=== PATIENT | female | born 1950 ===

== ENCOUNTER 2020-07-31 17:07 | Inpatient (IN) | payer SELFPAY ==
[~2020-07-31] VITALS: Ht 152.4 cm; Wt 54.0 kg
--- NOTE | 2020-07-31 17:26 | NUR ---
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
--- NOTE | 2020-07-31 17:42 | NUR ---
Per nephew pt is here for bilateral arm, leg and CP. Mongolian speaking only.
[2020-07-31] MEDS ORDERED: SODIUM CHLORIDE FLUSH 10ML SYR IVF ONE ×2 (18:00→19:00)
[2020-07-31] MEDS ORDERED: ASPIRIN 81 MG TABLET CHEW PO ONE (18:00)
[2020-07-31] MEDS ORDERED: ASPIRIN 81 MG TABLET CHEW ONE (18:08)
--- NOTE | 2020-07-31 18:15 | NUR ---
Provided with ASA. VS updated. Phleb at bedside, Xray complete.
[2020-07-31 18:38] LABS: BASOPHILS % (AUTO) 1 % (0-1); EOSINOPHILS % (AUTO) 1 % (1-7); LYMPHOCYTES % (AUTO) 7 % (22-44); MEAN CORPUSCULAR HEMOGLOBIN 26.1 pg (27.0-34.8); MEAN CORPUSCULAR HGB CONC 32.6 g/dL (32.4-35.8); MONOCYTES % (AUTO) 7 % (2-9); NEUTROPHILS % (AUTO) 85 % (42-75); PLATELET COUNT 678 x10^3/uL (130-400); RED BLOOD COUNT 3.71 x10^6/uL (3.82-5.3)
[2020-07-31 18:43] LABS: ALANINE AMINOTRANSFERASE 45 U/L (12-78); ALBUMIN 1.8 g/dL (3.4-5.0); ANION GAP 6 mmol/L (5-15); CALCIUM 8.5 mg/dL (8.5-10.1); CHLORIDE 103 mmol/L (98-107); CREATININE 0.67 mg/dL (0.55-1.02)
[2020-07-31 18:45] LABS: ALKALINE PHOSPHATASE 212 U/L (45-117); BILIRUBIN,TOTAL 0.4 mg/dL (0.2-1.0); TOTAL PROTEIN 7.4 g/dL (6.4-8.2)
--- NOTE | 2020-07-31 18:55 | NUR ---
Report to NOC RN
[2020-07-31] MEDS ORDERED: CEFTRIAXONE PMX 1GM/50ML 50 ML IVPB ONE (19:00)
[2020-07-31] MEDS ORDERED: SODIUM CHLORIDE 0.9% 1,000ML IVBOLUS ONE (19:00)
[2020-07-31 19:18] LABS: MD SCAN
[2020-07-31] MEDS ORDERED: ACETAMINOPHEN 500 MG TABLET ONE (20:14)
[2020-07-31] MEDS ORDERED: CEFTRIAXONE PMX 1GM/50ML 50 ML ONE (20:27)
[2020-07-31 20:29] LABS: MICROSCOPIC INDICATED
[2020-07-31] MEDS ORDERED: ACETAMINOPHEN 500 MG TABLET PO ONE (20:30)
[2020-07-31] MEDS ORDERED: BISACODYL 10 MG SUPP PR PRN (22:00)
[2020-07-31] MEDS ORDERED: POLYETHYLENE GLYCOL 17 GM PACKET PO PRN (22:00)
[2020-07-31 22:04] LABS: TROPONIN I < 0.015 ng/mL (0.000-0.045)
--- NOTE | 2020-07-31 23:00 | NUR ---
REPORT GIVEN TO [facility].
[2020-07-31 23:35] VITALS: BP 112/74
[2020-08-01] MEDS: HEPARIN 5,000 UNITS/ML, 1ML SQ SCH ×3 (01:25→17:08)
[2020-08-01] MEDS: CEFTRIAXONE PMX 1GM/50ML 50 ML IV SCH (01:25)
[2020-08-01] MEDS: SODIUM CHLORIDE 0.9% 1,000 ML IV SCH ×2 (01:25→13:05)
[2020-08-01 02:05] VITALS: BP 118/68
[2020-08-01 03:09] VITALS: BP 118/68
[2020-08-01 05:30] LABS: BASOPHILS % (AUTO) 0 % (0-1); EOSINOPHILS % (AUTO) 2 % (1-7); LYMPHOCYTES % (AUTO) 9 % (22-44); MEAN CORPUSCULAR HEMOGLOBIN 25.9 pg (27.0-34.8); MEAN CORPUSCULAR HGB CONC 32.3 g/dL (32.4-35.8); MEAN PLATELET VOLUME 7.3 fL (7.4-10.4); MONOCYTES % (AUTO) 5 % (2-9); NEUTROPHILS % (AUTO) 84 % (42-75); PLATELET COUNT 693 x10^3/uL (130-400); RED BLOOD COUNT 3.66 x10^6/uL (3.82-5.3); RED CELL DISTRIBUTION WIDTH 14.8 % (9.6-15.2)
[2020-08-01 05:40] LABS: ANION GAP 7 mmol/L (5-15); CALCIUM 8.5 mg/dL (8.5-10.1); CHLORIDE 108 mmol/L (98-107); CREATININE 0.56 mg/dL (0.55-1.02)
[2020-08-01 06:12] LABS: MD SCAN
[2020-08-01 08:12] VITALS: BP 120/58
[2020-08-01] MEDS: SENNA/DOCUSATE TABLET PO SCH (09:00)
[2020-08-01] MEDS: ACETAMINOPHEN 325 MG TABLET PO PRN (09:00)
[2020-08-01] MEDS: OXYcodone IR 5MG TABLET PO PRN (09:11)
[2020-08-01 12:50] VITALS: BP 105/68
[2020-08-01 20:27] VITALS: BP 122/69
[2020-08-02 00:24] VITALS: BP 111/68
[2020-08-02] MEDS: ACETAMINOPHEN 325 MG TABLET PO PRN ×3 (00:27→19:45)
[2020-08-02] MEDS: SODIUM CHLORIDE 0.9% 1,000 ML IV SCH ×3 (01:42→18:06)
[2020-08-02] MEDS: CEFTRIAXONE PMX 1GM/50ML 50 ML IV SCH (01:42)
[2020-08-02] MEDS: HEPARIN 5,000 UNITS/ML, 1ML SQ SCH ×3 (01:43→18:07)
[2020-08-02 08:00] VITALS: BP 125/73
[2020-08-02] MEDS: SENNA/DOCUSATE TABLET PO SCH (09:44)
[2020-08-02] MEDS: OXYcodone IR 5MG TABLET PO PRN ×2 (09:55→18:14)
[2020-08-02] MEDS ORDERED: VANCOMYCIN PER PHARMACY MC PRN (12:00)
[2020-08-02] MEDS ORDERED: PHARMACOKINETIC MONITORING MC PRN (12:30)
[2020-08-02] MEDS: VANCOMYCIN PMX 1GM/200ML 200 ML IVPB SCH (12:30)
[2020-08-02 14:00] VITALS: BP 106/63
[2020-08-02] MEDS ORDERED: OMNIPAQUE 350 MG/ML, 75ML BOTTLE ONE (17:14)
[2020-08-02 19:32] VITALS: BP 124/71
[2020-08-03 00:39] VITALS: BP 112/66
[2020-08-03] MEDS: VANCOMYCIN PMX 1GM/200ML 200 ML IVPB SCH ×2 (00:50→12:25)
[2020-08-03] MEDS: HEPARIN 5,000 UNITS/ML, 1ML SQ SCH ×3 (01:15→17:14)
[2020-08-03] MEDS: CEFTRIAXONE PMX 1GM/50ML 50 ML IV SCH (02:10)
[2020-08-03] MEDS: OXYcodone IR 5MG TABLET PO PRN ×2 (04:55→09:29)
[2020-08-03] MEDS: SODIUM CHLORIDE 0.9% 1,000 ML IV SCH ×3 (04:56→23:54)
[2020-08-03 06:15] LABS: BASOPHILS % (AUTO) 1 % (0-1); EOSINOPHILS % (AUTO) 2 % (1-7); LYMPHOCYTES % (AUTO) 9 % (22-44); MEAN CORPUSCULAR HEMOGLOBIN 26.4 pg (27.0-34.8); MEAN CORPUSCULAR HGB CONC 33.3 g/dL (32.4-35.8); MEAN PLATELET VOLUME 7.3 fL (7.4-10.4); MONOCYTES % (AUTO) 6 % (2-9); NEUTROPHILS % (AUTO) 82 % (42-75); PLATELET COUNT 561 x10^3/uL (130-400); RED BLOOD COUNT 3.11 x10^6/uL (3.82-5.3); RED CELL DISTRIBUTION WIDTH 14.8 % (9.6-15.2)
[2020-08-03 06:19] LABS: MD NO
[2020-08-03 06:23] LABS: CALCIUM 7.8 mg/dL (8.5-10.1); CHLORIDE 107 mmol/L (98-107)
[2020-08-03 06:29] LABS: ALANINE AMINOTRANSFERASE 40 U/L (12-78); ALBUMIN 1.4 g/dL (3.4-5.0); ALKALINE PHOSPHATASE 180 U/L (45-117); ANION GAP 9 mmol/L (5-15); BILIRUBIN,TOTAL 0.3 mg/dL (0.2-1.0); CREATININE 0.58 mg/dL (0.55-1.02)
[2020-08-03 07:15] VITALS: BP 121/70
[2020-08-03] MEDS: SENNA/DOCUSATE TABLET PO SCH (09:28)
[2020-08-03] MEDS: ACETAMINOPHEN 325 MG TABLET PO PRN (09:29)
[2020-08-03 10:32] LABS: VANCOMYCIN,TROUGH 12.4 mcg/mL (5.0-10.0)
[2020-08-03 12:40] VITALS: BP 108/67
[2020-08-03] MEDS: POTASSIUM CHLORIDE 20 MEQ TAB.ER.PRT PO SCH (17:14)
[2020-08-03 21:24] VITALS: BP 103/63
[2020-08-04] MEDS: HEPARIN 5,000 UNITS/ML, 1ML SQ SCH ×3 (00:19→16:36)
[2020-08-04] MEDS: VANCOMYCIN PMX 1GM/200ML 200 ML IVPB SCH ×2 (00:33→12:30)
[2020-08-04] MEDS: ONDANSETRON ODT 4 MG PO PRN (00:33)
[2020-08-04] MEDS: CEFTRIAXONE PMX 1GM/50ML 50 ML IV SCH (02:12)
[2020-08-04] MEDS: ACETAMINOPHEN 325 MG TABLET PO PRN (02:13)
[2020-08-04 02:16] VITALS: BP 115/60
[2020-08-04 06:10] LABS: BASOPHILS % (AUTO) 1 % (0-1); EOSINOPHILS % (AUTO) 1 % (1-7); LYMPHOCYTES % (AUTO) 10 % (22-44); MEAN CORPUSCULAR HEMOGLOBIN 26.6 pg (27.0-34.8); MEAN CORPUSCULAR HGB CONC 33.2 g/dL (32.4-35.8); MEAN PLATELET VOLUME 6.8 fL (7.4-10.4); MONOCYTES % (AUTO) 6 % (2-9); NEUTROPHILS % (AUTO) 82 % (42-75); PLATELET COUNT 566 x10^3/uL (130-400); RED BLOOD COUNT 3.03 x10^6/uL (3.82-5.3); RED CELL DISTRIBUTION WIDTH 14.7 % (9.6-15.2)
[2020-08-04 06:20] LABS: MD NO
[2020-08-04 06:28] LABS: ALBUMIN 1.4 g/dL (3.4-5.0); ANION GAP 8 mmol/L (5-15); CALCIUM 8.1 mg/dL (8.5-10.1); CHLORIDE 109 mmol/L (98-107)
[2020-08-04 06:31] LABS: ALANINE AMINOTRANSFERASE 33 U/L (12-78); ALKALINE PHOSPHATASE 180 U/L (45-117); BILIRUBIN,TOTAL 0.4 mg/dL (0.2-1.0); CREATININE 0.56 mg/dL (0.55-1.02); TOTAL PROTEIN 5.9 g/dL (6.4-8.2)
[2020-08-04] MEDS: SODIUM CHLORIDE 0.9% 1,000 ML IV SCH ×2 (08:15→22:36)
[2020-08-04] MEDS: POTASSIUM CHLORIDE 20 MEQ TAB.ER.PRT PO SCH ×2 (08:15→16:35)
[2020-08-04] MEDS: SENNA/DOCUSATE TABLET PO SCH (08:15)
[2020-08-04 08:42] VITALS: BP 99/64
[2020-08-04 09:11] LABS: HCT (SEDRATE) 25.5 % (34.6-47.8)
[2020-08-04 10:46] LABS: SEDIMENTATION RATE > 120 mm/hr (0-20)
[2020-08-04 13:35] VITALS: BP 101/69
[2020-08-04] MEDS ORDERED: OMNIPAQUE 350 MG/ML, 100ML BOTTLE ONE (14:45)
[2020-08-04 20:11] VITALS: BP 110/65
[2020-08-05 01:01] VITALS: BP 122/71
[2020-08-05] MEDS: HEPARIN 5,000 UNITS/ML, 1ML SQ SCH ×3 (01:42→17:38)
[2020-08-05] MEDS: SODIUM CHLORIDE 0.9% 1,000 ML IV SCH ×3 (06:22→23:45)
[2020-08-05 08:54] VITALS: BP 122/72
[2020-08-05] MEDS: POTASSIUM CHLORIDE 20 MEQ TAB.ER.PRT PO SCH ×2 (11:04→17:37)
[2020-08-05] MEDS: SENNA/DOCUSATE TABLET PO SCH (11:04)
[2020-08-05 15:13] VITALS: BP 110/71
[2020-08-05 20:21] VITALS: BP 113/75
[2020-08-06] MEDS: HEPARIN 5,000 UNITS/ML, 1ML SQ SCH ×3 (00:22→16:51)
[2020-08-06] MEDS: ONDANSETRON ODT 4 MG PO PRN ×2 (00:23→21:05)
[2020-08-06] MEDS: ACETAMINOPHEN 325 MG TABLET PO PRN ×2 (00:23→21:03)
[2020-08-06] MEDS: OXYcodone IR 5MG TABLET PO PRN ×4 (00:25→21:15)
[2020-08-06 00:27] VITALS: BP 120/75
[2020-08-06 07:11] VITALS: BP 107/67
[2020-08-06] MEDS: SODIUM CHLORIDE 0.9% 1,000 ML IV SCH (10:22)
[2020-08-06] MEDS: POTASSIUM CHLORIDE 20 MEQ TAB.ER.PRT PO SCH ×2 (10:23→16:51)
[2020-08-06] MEDS: SENNA/DOCUSATE TABLET PO SCH (10:23)
[2020-08-06 14:05] VITALS: BP 102/66
[2020-08-06 19:18] VITALS: BP 122/65
[2020-08-07] MEDS: SODIUM CHLORIDE 0.9% 1,000 ML IV SCH ×3 (00:29→17:09)
[2020-08-07] MEDS: HEPARIN 5,000 UNITS/ML, 1ML SQ SCH ×2 (00:30→07:48)
[2020-08-07 01:42] VITALS: BP 107/65
[2020-08-07 06:13] LABS: ALANINE AMINOTRANSFERASE 59 U/L (12-78); ALBUMIN 1.5 g/dL (3.4-5.0); ANION GAP 3 mmol/L (5-15); CALCIUM 8.3 mg/dL (8.5-10.1); CHLORIDE 107 mmol/L (98-107)
[2020-08-07 06:15] LABS: BASOPHILS % (AUTO) 2 % (0-1); EOSINOPHILS % (AUTO) 4 % (1-7); LYMPHOCYTES % (AUTO) 12 % (22-44); MEAN CORPUSCULAR HEMOGLOBIN 26.7 pg (27.0-34.8); MEAN CORPUSCULAR HGB CONC 33.2 g/dL (32.4-35.8); MEAN PLATELET VOLUME 6.9 fL (7.4-10.4); MONOCYTES % (AUTO) 5 % (2-9); NEUTROPHILS % (AUTO) 77 % (42-75); PLATELET COUNT 613 x10^3/uL (130-400); RED BLOOD COUNT 3.04 x10^6/uL (3.82-5.3)
[2020-08-07 06:20] LABS: ALKALINE PHOSPHATASE 220 U/L (45-117); BILIRUBIN,TOTAL 0.4 mg/dL (0.2-1.0); CREATININE 0.48 mg/dL (0.55-1.02); TOTAL PROTEIN 6.3 g/dL (6.4-8.2)
[2020-08-07 06:27] LABS: HCT (SEDRATE) 25.2 % (34.6-47.8)
[2020-08-07 07:50] LABS: SEDIMENTATION RATE > 120 mm/hr (0-20)
[2020-08-07 07:53] VITALS: BP 118/71
[2020-08-07] MEDS: POTASSIUM CHLORIDE 20 MEQ TAB.ER.PRT PO SCH ×2 (08:00→17:08)
[2020-08-07] MEDS: SENNA/DOCUSATE TABLET PO SCH (08:08)
[2020-08-07] MEDS: OXYcodone IR 5MG TABLET PO PRN (08:08)
[2020-08-07 08:21] LABS: MD SCAN
[2020-08-07] MEDS ORDERED: BUPIVACAINE/PF 0.5% ONE (12:22)
[2020-08-07] MEDS ORDERED: EPINEPHRINE 1 MG/ML, 1ML ONE (12:22)
[2020-08-07] MEDS ORDERED: LIDOCAINE/PF 0.5% ,50ML ONE (12:23)
[2020-08-07] MEDS ORDERED: CHLORHEXIDINE 15 ML UDC MM STA (12:32)
[2020-08-07] MEDS ORDERED: CHLORHEXIDINE 15 ML UDC ONE (12:33)
[2020-08-07] MEDS ORDERED: FENTANYL PF 100 MCG/2ML ONE (13:00)
[2020-08-07] MEDS ORDERED: MIDAZOLAM 1 MG/ML, 2ML ONE (13:00)
[2020-08-07] MEDS ORDERED: BUPIVACAINE/PF 0.25% ONE (13:31)
[2020-08-07] MEDS ORDERED: ROCURONIUM 10 MG/ML,10ML ONE (13:38)
[2020-08-07] MEDS ORDERED: ONDANSETRON 2MG/ML, 2ML ONE (13:38)
[2020-08-07] MEDS ORDERED: SUCCINYLCHOLINE 20 MG/ML, 10ML ONE (13:38)
[2020-08-07] MEDS ORDERED: CEFAZOLIN 1,000 MG ONE (13:38)
[2020-08-07] MEDS ORDERED: DEXAMETHASONE 4 MG/ML, 1ML ONE (13:38)
[2020-08-07] MEDS ORDERED: PROPOFOL 10 MG/ML, 20ML ONE ×2 (13:38→13:52)
[2020-08-07] MEDS ORDERED: DIAZEPAM 5 MG/ML, 2ML IVPush PRN (15:00)
[2020-08-07] MEDS ORDERED: MEPERIDINE/PF 25MG/0.5ML IVPush PRN (15:00)
[2020-08-07] MEDS ORDERED: LABETALOL 5MG/ML, 20ML IV PRN (15:00)
[2020-08-07] MEDS ORDERED: FENTANYL PF 100 MCG/2ML IV PRN (15:00)
[2020-08-07] MEDS ORDERED: HYDROmorphone 1 MG/ML, 1ML INJ IVPush PRN (15:00)
[2020-08-07] MEDS ORDERED: OXYcodone 5 MG/5 ML ORAL.SOL UDC PO PRN (15:00)
[2020-08-07] MEDS ORDERED: hydrALAzine 20 MG/ML, 1ML IV PRN (15:00)
[2020-08-07] MEDS ORDERED: DIPHENHYDRAMINE 50 MG/ML, 1ML IVPush PRN (15:00)
[2020-08-07] MEDS ORDERED: MIDAZOLAM 1 MG/ML, 2ML IV PRN (15:00)
[2020-08-07] MEDS ORDERED: EPHEDRINE 50 MG/ML, 1ML IVPush PRN (15:00)
[2020-08-07] MEDS ORDERED: PROMETHAZINE 25 MG/ML, 1ML IVPush PRN (15:00)
[2020-08-07] MEDS ORDERED: ONDANSETRON 2MG/ML, 2ML IVPush PRN (15:00)
[2020-08-07] MEDS ORDERED: PROMETHAZINE 12.5 MG SUPP PR PRN (15:00)
[2020-08-07] MEDS ORDERED: ALBUTEROL SULFATE 2.5 MG/3 ML NPPB PRN (15:00)
[2020-08-07 16:00] VITALS: BP 110/63
[2020-08-07 21:02] VITALS: BP 112/70
[2020-08-08 00:03] VITALS: BP 119/61
[2020-08-08] MEDS: SODIUM CHLORIDE 0.9% 1,000 ML IV SCH ×2 (01:27→08:02)
[2020-08-08 03:27] VITALS: BP 126/69
[2020-08-08] MEDS: SENNA/DOCUSATE TABLET PO SCH (07:35)
[2020-08-08] MEDS: ACETAMINOPHEN 325 MG TABLET PO PRN (07:36)
[2020-08-08 07:56] VITALS: BP 122/66
[2020-08-08] MEDS: POTASSIUM CHLORIDE 20 MEQ TAB.ER.PRT PO SCH ×2 (08:00→09:53)
[2020-08-08 08:56] LABS: BASOPHILS % (AUTO) 0 % (0-1); EOSINOPHILS % (AUTO) 0 % (1-7); LYMPHOCYTES % (AUTO) 9 % (22-44); MEAN CORPUSCULAR HEMOGLOBIN 26.4 pg (27.0-34.8); MEAN CORPUSCULAR HGB CONC 32.9 g/dL (32.4-35.8); MEAN PLATELET VOLUME 6.8 fL (7.4-10.4); MONOCYTES % (AUTO) 5 % (2-9); NEUTROPHILS % (AUTO) 85 % (42-75); PLATELET COUNT 647 x10^3/uL (130-400); RED BLOOD COUNT 2.96 x10^6/uL (3.82-5.3)
[2020-08-08 08:59] LABS: ALANINE AMINOTRANSFERASE 44 U/L (12-78); ALBUMIN 1.5 g/dL (3.4-5.0); ANION GAP 8 mmol/L (5-15); CHLORIDE 111 mmol/L (98-107); CREATININE 0.51 mg/dL (0.55-1.02)
[2020-08-08 09:00] LABS: ALKALINE PHOSPHATASE 188 U/L (45-117); BILIRUBIN,TOTAL 0.2 mg/dL (0.2-1.0); TOTAL PROTEIN 6.2 g/dL (6.4-8.2)
[2020-08-08 09:05] LABS: MD NO
[2020-08-08 12:28] LABS: ANTI-NUCLEAR ANTIBODY PATTERN CYTOPLASMIC
[2020-08-08 14:21] VITALS: BP 113/65
[2020-08-08 20:21] VITALS: BP 130/69
[2020-08-09 01:13] VITALS: BP 123/74
[2020-08-09 06:14] LABS: BASOPHILS % (AUTO) 0 % (0-1); EOSINOPHILS % (AUTO) 0 % (1-7); LYMPHOCYTES % (AUTO) 16 % (22-44); MEAN CORPUSCULAR HEMOGLOBIN 26.2 pg (27.0-34.8); MEAN CORPUSCULAR HGB CONC 32.8 g/dL (32.4-35.8); MEAN PLATELET VOLUME 6.9 fL (7.4-10.4); MONOCYTES % (AUTO) 6 % (2-9); NEUTROPHILS % (AUTO) 78 % (42-75); PLATELET COUNT 641 x10^3/uL (130-400); RED BLOOD COUNT 2.97 x10^6/uL (3.82-5.3); RED CELL DISTRIBUTION WIDTH 15.2 % (9.6-15.2)
[2020-08-09 06:22] LABS: MD NO
[2020-08-09 06:24] LABS: CHLORIDE 111 mmol/L (98-107)
[2020-08-09 06:25] LABS: HCT (SEDRATE) 23.7 % (34.6-47.8)
[2020-08-09 06:44] VITALS: BP 136/69
[2020-08-09 06:47] LABS: ALANINE AMINOTRANSFERASE 82 U/L (12-78); ALBUMIN 1.7 g/dL (3.4-5.0); ALKALINE PHOSPHATASE 167 U/L (45-117); ANION GAP 6 mmol/L (5-15); BILIRUBIN,TOTAL 0.2 mg/dL (0.2-1.0); CALCIUM 7.9 mg/dL (8.5-10.1); CREATININE 0.56 mg/dL (0.55-1.02); TOTAL PROTEIN 6.3 g/dL (6.4-8.2)
[2020-08-09] MEDS ORDERED: predniSONE 50MG TABLET ONE (10:05)
[2020-08-09] MEDS: SENNA/DOCUSATE TABLET PO SCH (10:08)
[2020-08-09] MEDS ORDERED: HYDR-3237 PO (14:05)
[2020-08-09] MEDS ORDERED: SENN1TAB94 PO (14:05)
[2020-08-09] MEDS ORDERED: PRED20TA PO (14:05)
[2020-08-09 14:25] VITALS: BP 157/79
== END 2020-08-09 18:30 | disposition home or self-care (01) | DRG 855 ==
LOC: ED 22:00 → EDIP 22:25 → 4NE 23:25
PROVIDERS: ADMIT Internal Medicine; ATTEND Family Medicine
PROC: 0KBR0ZX Excision of Left Upper Leg Muscle, Open Approach, Diagnostic (ICD-10-PCS; principal; 2020-08-07 14:00)
PROC: 03BT0ZX Excision of Left Temporal Artery, Open Approach, Diagnostic (ICD-10-PCS; 2020-08-07 14:00)
DX: A41.9 Sepsis, unspecified organism (principal); D50.9 Iron deficiency anemia, unspecified; E04.1 Nontoxic single thyroid nodule; I10 Essential (primary) hypertension; Z20.828 Contact with and (suspected) exposure to other viral communicable diseases; I77.6 Arteritis, unspecified; Z83.1 Family history of other infectious and parasitic diseases; R65.20 Severe sepsis without septic shock; Z90.710 Acquired absence of both cervix and uterus; N64.4 Mastodynia; N30.90 Cystitis, unspecified without hematuria
CPT/HCPCS: 36415; 71045; 71260; 74177; 80048; 80053; 80202; 81001; 82550; 83520; 83605; 83735; 84100; 84145; 84443; 84484; 85025; 85651; 86038; 86140; 86235; 86256; 86480; 86784; 87040; 87086; 87635; 88300; 88305; 93005; 93306; 93356; 93970; 99001; 99285; G0378; J0171; J0690; J0696; J1100; J1644; J2001; J2250; J2405; J2704; J3010; J3370; Q0162; Q9967; J0330; J7030; J7512